=== PATIENT | female | born 1970 | race Caucasian/White ===

== ENCOUNTER 2017-04-08 15:34 | Inpatient (IN) ==
[2017-04-08] MEDS ORDERED: Aspirin 81 MG TAB.CHEW PO ONE (15:49)
--- NOTE | 2017-04-08 15:53 | Emergency Department Note ---
Disposition Clinical Impression: Acute kidney injury Chest pain Qualifiers: Chest pain type: unspecified Qualified Code(s): R07.9 - Chest pain, unspecified Disposition: Admitted As Inpatient Condition: Good Referrals: Unique Houser CNP [Primary Care Provider] - Forms: ED Satisfaction Letter General Adult HPI - General Chief complaint: ED Chest Pain Stated complaint: CP// Left arm numb Time Seen by Provider: 04/08/17 15:44 Source: patient Limitations: no limitations Nursing Notes Reviewed: Yes Vital Signs Reviewed: Yes - History of Present Illness HPI Narrative: 46-year-old female who 1 hour ago was sitting in the waiting room with her and had sudden onset left-sided chest discomfort with radiation to the left shoulder and left arm. She denies any weakness. She had mild dyspnea associated with it. She states she did have some chest pain a couple years ago and had a stress test which was normal. She does not have any known cardiac disease that she is aware of. Her past medical history includes diabetes, hypertension, hypothyroidism. She has had a prior cholecystectomy years ago. She denies diaphoresis. She states the pain is improving a little bit and does not have all the symptoms in her left arm anymore. She denies any modifying factors. She has no syncope. She does not describe it as a tearing sensation and it is not radiating all the way toward her back. Pain Severity: severe Pain Scale: 9 Consistency: constant Improves with: nothing Worsens with: nothing Treatments Prior to Arrival: none - Related Data Home Medications Medication Instructions Recorded Confirmed metFORMIN [Glucophage] 500 mg PO DAILY 12/03/15 04/08/17 Aspirin [Lo-Dose Aspirin EC] 81 mg PO DAILY 02/01/16 04/08/17 Lovastatin [Mevacor] 20 mg PO HS 02/01/16 04/08/17 Calcium Citrate 500 mg PO BID 04/08/17 04/08/17 Cetirizine HCl [Zyrtec] 10 mg PO DAILY 04/08/17 04/08/17 Cyanocobalamin (Vitamin B-12) 2,000 mcg PO DAILY 04/08/17 04/08/17 [Vitamin B-12] Ergocalciferol (VITAMIN D2) 50,000 unit PO QWEEK 04/08/17 04/08/17 [Vitamin D2] Fluticasone Propionate Nasal 50 mcg NS DAILY PRN 04/08/17 04/08/17 [Flonase] Latanoprost [Xalatan] 1 drop OP HS 04/08/17 04/08/17 Levothyroxine [Synthroid] 125 mcg PO 0630 04/08/17 04/08/17 Megestrol Acetate 20 mg PO BID 04/08/17 04/08/17 Metoprolol [Lopressor] 12.5 mg PO BID 04/08/17 04/08/17 Allergies Allergy/AdvReac Type Severity Reaction Status Date / Time Penicillins [PCN] Allergy Rash Verified 07/05/16 22:43 Sulfa (Sulfonamide Allergy Rash Verified 07/05/16 22:43 Antibiotics) All systems ED: reviewed and negative except as stated. Constitutional: Denies: fever ENT ED: Denies: throat pain Cardiovascular: Reports: chest pain. 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 Absent: respiratory distress - Cardiovascular Cardiovascular exam: Present: regular rate, normal rhythm - Abdominal Exam Abdominal exam: Present: soft, Non-Tender. Absent: distention, guarding - Extremities Exam Extremities exam: Present: normal inspection. Absent: pedal edema - Neurological Exam Neurological exam: Present: alert, oriented X3 - Psychiatric Psychiatric exam: Present: normal affect, normal mood - Skin Skin exam: Present: warm, dry Course Course Narrative: I have concern for primary cardiac etiology versus pulmonary etiology versus pulmonary embolism. I will go ahead and get a d-dimer as she is low risk. She is having some dyspnea and she has tachycardia. She is not hypoxic. I do not believe that this is a aortic dissection as she is not in significant distress and the pain is not radiating into her back and she has equal pulses. She also states that the pain is improving and not worsening. We will given aspirin and do a EKG and chest x-ray and lab work with likely admission for ACS rule out Possible mild ST depression in lateral leads. Pain went from a 10 to a 5 after 3 sublingual nitro. Placed her on a nitro drip. Received ASA. Troponin negative. CXR negative. Will admit for CP rule out. Hospitalist requested a cardio consult which I entered for them. Vital Signs Temperature 97.6 F 04/08/17 15:46 Pulse Rate 110 04/08/17 15:46 Respiratory Rate 18 04/08/17 15:46 Blood Pressure 140/105 04/08/17 15:46 O2 Sat by Pulse Oximetry 98 04/08/17 15:46 Temperature 97.6 F 04/08/17 15:46 Pulse Rate 89 04/08/17 18:35 Respiratory Rate 18 04/08/17 18:35 Blood Pressure 116/63 04/08/17 18:35 O2 Sat by Pulse Oximetry 97 04/08/17 18:35 Oxygen Delivery Oxygen Delivery Nasal Cannula Medical Decision Making - Medical Records Medical records reviewed: Yes I reviewed the patient's medical records. - Lab Data Lab results reviewed: Yes I reviewed the patient's lab results. Result diagrams: 04/08/17 15:46 04/08/17 15:46 Lab Results 04/08/17 04/08/17 04/08/17 Range/Units 15:46 15:46 15:46 WBC 11.9 H (4.3-11.1) K/mcL RBC 5.07 H (3.82-4.97) M/mcL Hgb 13.6 (11.5-15.4) g/dL Hct 42.6 (35.3-44.9) % MCV 84.0 (83.0-100.0) fL MCH 26.8 L (28.0-33.3) pg MCHC 31.9 (31.6-35.5) g/dL RDW 14.7 H (11.5-14.5) % Plt Count 435 H (140-400) K/mcL MPV 9.3 L (9.4-12.4) fL Immature Gran % 1.1 (0-4) % Seg Neutrophils % 58.1 % Lymphocytes % 33.8 % Monocytes % 5.2 % Eosinophils % 1.3 % Basophils % 0.5 % Neutrophils # 7.0 (1.6-8.9) K/mcL Lymphocytes # 4.0 (0.6-4.6) K/mcL Monocytes # 0.6 (0.0-1.3) K/mcL Eosinophils # 0.2 (0.0-0.6) K/mcL Basophils # 0.1 (0.0-0.2) K/mcL D-Dimer 314 (0-500) ng/mLFEU Sodium (136-145) mEq/L Potassium (3.5-4.5) mEq/L Chloride (98-109) mEq/L Carbon Dioxide (19-29) mEq/L BUN (7-20) mg/dL Creatinine (0.57-1.11) mg/dL Est GFR ( Amer) (> 60) Est GFR (Non-Af Amer) (> 60) BUN/Creatinine Ratio (6-26) Glucose (70-99) mg/dL Calculated Osmolality (280-300) Calcium (8.6-10.8) mg/dL Total Bilirubin (0.2-1.2) mg/dL Direct Bilirubin (0.0-0.5) mg/dL Indirect Bilirubin (0.0-1.2) mg/dL AST (5-34) Units/L ALT (0-55) Units/L Alkaline Phosphatase (38-126) Units/L Troponin I (0-0.03) ng/mL B-Natriuretic Peptide < 10 (0-100) pg/mL Serum Total Protein (6.0-8.3) g/dL Albumin (3.5-5.0) g/dL Globulin (2.4-3.5) g/dL Albumin/Globulin Ratio (1.1-2.2) Lipase (8-78) Units/L 04/08/17 04/08/17 Range/Units 15:46 15:46 WBC (4.3-11.1) K/mcL RBC (3.82-4.97) M/mcL Hgb (11.5-15.4) g/dL Hct (35.3-44.9) % MCV (83.0-100.0) fL MCH (28.0-33.3) pg MCHC (31.6-35.5) g/dL RDW (11.5-14.5) % Plt Count (140-400) K/mcL MPV (9.4-12.4) fL Immature Gran % (0-4) % Seg Neutrophils % % Lymphocytes % % Monocytes % % Eosinophils % % Basophils % % Neutrophils # (1.6-8.9) K/mcL Lymphocytes # (0.6-4.6) K/mcL Monocytes # (0.0-1.3) K/mcL Eosinophils # (0.0-0.6) K/mcL Basophils # (0.0-0.2) K/mcL D-Dimer (0-500) ng/mLFEU Sodium 141 (136-145) mEq/L Potassium 3.2 L (3.5-4.5) mEq/L Chloride 102 (98-109) mEq/L Carbon Dioxide 28 (19-29) mEq/L BUN 13 (7-20) mg/dL Creatinine 1.18 H (0.57-1.11) mg/dL Est GFR ( Amer) > 60 (> 60) Est GFR (Non-Af Amer) 50 L (> 60) BUN/Creatinine Ratio 11 (6-26) Glucose 115 H (70-99) mg/dL Calculated Osmolality 293 (280-300) Calcium 8.0 L (8.6-10.8) mg/dL Total Bilirubin 1.0 (0.2-1.2) mg/dL Direct Bilirubin 0.3 (0.0-0.5) mg/dL Indirect Bilirubin 0.7 (0.0-1.2) mg/dL AST 42 H (5-34) Units/L ALT 30 (0-55) Units/L Alkaline Phosphatase 88 (38-126) Units/L Troponin I 0.00 (0-0.03) ng/mL B-Natriuretic Peptide (0-100) pg/mL Serum Total Protein 7.9 (6.0-8.3) g/dL Albumin 3.5 (3.5-5.0) g/dL Globulin 4.4 H (2.4-3.5) g/dL Albumin/Globulin Ratio 0.8 L (1.1-2.2) Lipase 38 (8-78) Units/L - Radiology Data Radiology results reviewed: Yes I reviewed the patient's radiology results. - EKG Data EKG #1 EKG attestation: Yes I reviewed and interpreted this EKG. EKG shows normal: sinus rhythm Rate: tachycardia Rhythm: NSR [place]/QRS: normal Interpretation: nonspecific ST-T wave changes Attestation Statement - Attestation Attestation: I examined this patient and my medical decision-making was reviewed with the Resident Physician. I agree with the documented findings, disposition and treatment plan as described except to the extent set forth below. Chest pain, could be cardiac in etiology, proceed with admission for further evaluation and rule out acute coronary syndrome. Nitroglycerin given for pain. This did improve her pain and ultimately an infusion was initiated. Greater than 35 minutes of critical care time was spent resuscitating this acutely ill patient suffering from chest pain requiring nitroglycerin infusion for ongoing pain. This is excluding billable procedures.
[2017-04-08 16:00] LABS: Basophils # 0.1 K/mcL (0.0-0.2); Basophils % 0.5 %; Eosinophils # 0.2 K/mcL (0.0-0.6); Eosinophils % 1.3 %; Hematocrit 42.6 % (35.3-44.9); Hemoglobin 13.6 g/dL (11.5-15.4); Immature Granulocytes % 1.1 % (0-4); Lymphocytes % 33.8 %; Mean Corpuscular HGB Conc 31.9 g/dL (31.6-35.5); Mean Corpuscular Hemoglobin 26.8 pg (28.0-33.3); Mean Platelet Volume 9.3 fL (9.4-12.4); Monocytes # 0.6 K/mcL (0.0-1.3); Monocytes % 5.2 %; Platelet Count 435 K/mcL (140-400); Red Blood Count 5.07 M/mcL (3.82-4.97); Red Cell Distribution Width 14.7 % (11.5-14.5); Segmented Neutrophils % 58.1 %
[2017-04-08] MEDS: Nitroglycerin 0.4 MG TAB.SUBL SL ONE ×2 (16:11→17:00)
[2017-04-08 16:15] LABS: Alanine Aminotransferase 30 Units/L (0-55); Albumin 3.5 g/dL (3.5-5.0); Albumin/Globulin Ratio 0.8 (1.1-2.2); Alkaline Phosphatase 88 Units/L (38-126); Aspartate Amino Transferase 42 Units/L (5-34); BUN/Creatinine Ratio 11 (6-26); Bilirubin,Direct 0.3 mg/dL (0.0-0.5); Bilirubin,Indirect 0.7 mg/dL (0.0-1.2); Blood Urea Nitrogen 13 mg/dL (7-20); Carbon Dioxide 28 mEq/L (19-29); Chloride 102 mEq/L (98-109); Globulin 4.4 g/dL (2.4-3.5); Glucose 115 mg/dL (70-99); Lipase 38 Units/L (8-78); Osmolality,Calculated 293 (280-300); Potassium 3.2 mEq/L (3.5-4.5); Sodium 141 mEq/L (136-145); Total Protein 7.9 g/dL (6.0-8.3); eGFR For African Americans > 60 (> 60); eGFR For Non-African Americans 50 (> 60)
[2017-04-08] MEDS ORDERED: Nitroglycerin 25 MG/250 ML INFUS..BTL IVC SCH (17:00)
[2017-04-08] MEDS ORDERED: FentaNYL (PF) 1,000 MCG in 0.9 % Sodium Chloride 80 ML IVC SCH (18:00)
[2017-04-08] MEDS: Acetaminophen 325 MG TABLET PO ONE (18:55)
--- NOTE | 2017-04-08 18:56 | Internal Med History&Physical ---
Date of Encounter: 04/08/17 Time of Encounter: 18:54 Assessment and Plan (1) Unstable angina Current visit: Yes Status: Acute Typical chest pain based on the substernal location, pressure-like and relieved with nitroglycerin. Acute pulmonary embolus enters the differential however the d-dimer was negative which rules out PE. Patient continues to have angina at rest which qualifies as unstable angina and therefore ACS. We will treat her with IV nitroglycerin drip, start IV heparin drip per ACS protocol. Start IV metoprolol. Continue with aspirin. Consult cardiology. Obtain echocardiogram. Nothing by mouth after midnight for possible stress test versus catheter. Trend troponin. Keep the patient on telemetry. She is at high risk for morbidity, mortality and complications due to IV nitroglycerin and IV heparin which requires close blood level monitoring for coagulation parameters. (2) Hyperlipidemia Current visit: Yes Status: Acute Check lipid panel and TSH. Qualifiers: Hyperlipidemia type: unspecified Qualified Code(s): E78.5 - Hyperlipidemia , unspecified (3) Hypertension Current visit: Yes Status: Acute Continue with metoprolol. We will switch to IV form. Qualifiers: Hypertension type: essential hypertension Qualified Code(s): I10 - Essential (primary) hypertension (4) Type 2 diabetes mellitus Current visit: Yes Status: Acute Hold metformin. Start insulin sliding scale. Check hemoglobin A1c. Qualifiers: Diabetes mellitus complication status: without complication Diabetes mellitus correction insulin use: without correction use Qualified Code(s): E11.9 - Type 2 diabetes mellitus without complications (5) Hypokalemia Current visit: Yes Status: Acute Replete with IV potassium. (6) DVT prophylaxis Current visit: Yes Status: Acute We will be on heparin drip. Internal Medicine - H&P: HPI Chief complaint: Chest pain Admitted From: Emergency Dept Plans for Post Hospital Care: Home History of present illness: Ms. Ambrose is a 46 year old female with past medical history of hypothyroidism, hypertension, type 2 diabetes and hypercholesterolemia who presented to the hospital for chest pain. She reports that chest pain started abruptly around 3 PM while at rest, was located in the mellitus her chest, 10/10 in intensity squeezing and pressure-like, radiating to the left shoulder and left arm. She reports associated nausea and vomiting. She was brought to the hospital where she was given nitroglycerin which helped alleviate the pain. She reports that currently her pain as 4/10 in intensity while treated with nitro drip. A 14 point review of systems was negative except as above. Specifically negative for bleeding, bruising, history of blood clots. Past medical history as above Past surgical history: Thyroidectomy, tubal ligation and cholecystectomy Social history: Denies tobacco alcohol and drug use. Works as a SUPERVISOR MAINTENANCE Family history: Patient's mother suffered with CAD and had a CABG done in her 30s. Patient's father suffered with RI. Patient's sister suffers with CAD in her 40s. Patient's mother suffered with breast cancer in patient's grandmother suffered with ovarian cancer. Past Med Surg Social Fam HX - Past Medical History Medical history: diabetes, GERD, hyperlipidemia, hypertension Psychiatric history: no psych history - Past Surgical History Surgical History: , cholecystectomy, other (Bilateral tubal ligation) - Social History Smoking Status: Never smoker Smokeless Tobacco Status: No Alcohol use: none Drug use: none - Family History Father Hx Family Cardiac Disorders: Yes (RI) Mother Hx Family Cardiac Disorders: Yes (cabg at 35) Internal Medicine - H&P: Meds metFORMIN [Glucophage] 500 mg PO DAILY 12/03/15 [History] Aspirin [Lo-Dose Aspirin EC] 81 mg PO DAILY 02/01/16 [History] Lovastatin [Mevacor] 20 mg PO HS 02/01/16 [History] Calcium Citrate 500 mg PO BID 04/08/17 [History] Cetirizine HCl [Zyrtec] 10 mg PO DAILY 04/08/17 [History] Cyanocobalamin (Vitamin B-12) [Vitamin B-12] 2,000 mcg PO DAILY 04/08/17 [ History] Ergocalciferol (VITAMIN D2) [Vitamin D2] 50,000 unit PO QWEEK 04/08/17 [History] Fluticasone Propionate Nasal [Flonase] 50 mcg NS DAILY PRN 04/08/17 [History] Latanoprost [Xalatan] 1 drop OP HS 04/08/17 [History] Levothyroxine [Synthroid] 125 mcg PO 0630 04/08/17 [History] Megestrol Acetate 20 mg PO BID 04/08/17 [History] Metoprolol [Lopressor] 12.5 mg PO BID 04/08/17 [History] 3 Allergy/AdvReac Type Severity Reaction Status Date / Time Penicillins [PCN] Allergy Rash Verified 07/05/16 22:43 Sulfa (Sulfonamide Allergy Rash Verified 07/05/16 22:43 Antibiotics) All Systems PM: A 10-system review of systems was performed and is negative for pertinent findings except as documented above in the HPI. - Constitutional Vitals: Temp Pulse Resp BP Pulse Ox 97.6 F 89 18 116/63 97 04/08/17 15:46 04/08/17 18:35 04/08/17 18:35 04/08/17 18:35 04/08/17 18:35 General appearance: Present: A&O X 3 - Eye Eye exam: Present: PERRL, conjuntiva pink, sclera anicteric Pupils: Present: PERRL - Respiratory Respiratory exam: Present: CTAB. Absent: accessory muscle use, rales, rhonchi, wheezes - Cardiovascular Cardiovascular exam: Present: +S1, +S2, tachycardia. Absent: diastolic murmur, gallop, rubs, systolic murmur - GI/Abdominal GI/Abdominal exam: Present: normal bowel sounds, soft, no peritoneal signs. Absent: distended, tenderness - Extremities Exam Extremities exam: Present: warm, radial pulses palpable and symmetrical. Absent : calf tenderness, cyanotic, pedal edema - Neurological Exam Neurological exam: Present: CN II-XII intact, oriented X3, no focal deficits. Absent: pronater drift, facial droop, speech deficit - Skin Skin exam: Present: dry, intact Internal Med - H&P Results - Labs CBC & Chem 7: 04/08/17 15:46 04/08/17 15:46 - EKG Data -: EKG Interpreted by Myself EKG shows normal: axis, intervals, QRS complexes, ST-T waves Rate: tachycardia - EKG Data Prior EKG available for review: yes When compared to previous EKG: there is no significant change
[2017-04-08] MEDS ORDERED: *HR* HYDROcodone/Acet 5/325 mg TABLET PO PRN (19:04)
[2017-04-08] MEDS ORDERED: Naloxone 0.4 MG/ML INJ IVP PRN (19:04)
[2017-04-08] MEDS ORDERED: Ondansetron 4 MG/2 ML VIAL IVP PRN (19:04)
[2017-04-08] MEDS ORDERED: Acetaminophen 325 MG TABLET PO PRN (19:04)
[2017-04-08] MEDS ORDERED: *HR* Morphine 2 MG/ML SYRINGE IVP PRN (19:04)
[2017-04-08] MEDS ORDERED: *HR* Heparin 5,000 UNIT/ML VIAL IVP ONE (19:07)
[2017-04-08] MEDS ORDERED: *HR* Heparin 5,000 UNIT/ML VIAL IVP PRN ×2 (19:07)
[2017-04-08] MEDS ORDERED: *HR* Dextrose 50 % in Water (Syg) 50 ML SYRINGE IVP PRN (19:10)
[2017-04-08] MEDS ORDERED: Dextrose Gel 15 GM PO PRN ×2 (19:10)
[2017-04-08] MEDS ORDERED: D5% in Water 1,000 ML IVC PRN (19:10)
[2017-04-08] MEDS ORDERED: Heparin 25,000 UNIT/500 ML D5W 25,000 UNIT/500 ML MLS IVC SCH (19:15)
[2017-04-08 19:35] LABS: Hemoglobin 12.6 g/dL (11.5-15.4); Immature Platelets 1.4 % (1.1-6.1); Mean Corpuscular HGB Conc 31.5 g/dL (31.6-35.5); Mean Corpuscular Hemoglobin 26.6 pg (28.0-33.3); Mean Corpuscular Volume 84.4 fL (83.0-100.0); Mean Platelet Volume 9.4 fL (9.4-12.4); Red Blood Count 4.74 M/mcL (3.82-4.97); Red Cell Distribution Width 14.6 % (11.5-14.5)
[2017-04-08 19:44] LABS: INR 1.1; Prothrombin Time 11.4 Seconds (9.4-12.1)
[2017-04-08 19:46] LABS: Activated Partial Thrombo Time 29.6 Seconds (26.0-36.0)
[2017-04-08] MEDS: Insulin LISPRO 300 UNITS/3 ML VIAL SQ SCH ×2 (19:53→21:36)
[2017-04-08] MEDS ORDERED: Latanoprost 2.5 ML BOTTLE BOTH EYES SCH (21:00)
[2017-04-09 04:45] LABS: Basophils # 0.1 K/mcL (0.0-0.2); Basophils % 0.5 %; Eosinophils # 0.2 K/mcL (0.0-0.6); Eosinophils % 1.8 %; Hemoglobin 11.3 g/dL (11.5-15.4); Immature Granulocytes % 0.6 % (0-4); Lymphocytes # 4.6 K/mcL (0.6-4.6); Lymphocytes % 42.4 %; Mean Corpuscular HGB Conc 32.3 g/dL (31.6-35.5); Mean Corpuscular Hemoglobin 27.6 pg (28.0-33.3); Mean Corpuscular Volume 85.4 fL (83.0-100.0); Mean Platelet Volume 9.8 fL (9.4-12.4); Monocytes # 0.6 K/mcL (0.0-1.3); Monocytes % 5.4 %; Neutrophils # 5.4 K/mcL (1.6-8.9); Platelet Count 309 K/mcL (140-400); Red Cell Distribution Width 14.6 % (11.5-14.5); Segmented Neutrophils % 49.3 %
[2017-04-09 04:48] LABS: BUN/Creatinine Ratio 19 (6-26); Blood Urea Nitrogen 15 mg/dL (7-20); Calcium 7.2 mg/dL (8.6-10.8); Carbon Dioxide 25 mEq/L (19-29); Chloride 107 mEq/L (98-109); Cholesterol 181 mg/dL (< 200); Glucose 113 mg/dL (70-99); HDL Cholesterol 30 mg/dL (40-59); LDL Cholesterol,Calculated 105 mg/dL (0-99); Magnesium 2.1 mg/dL (1.6-2.6); Osmolality,Calculated 292 (280-300); Potassium 3.5 mEq/L (3.5-4.5); Sodium 140 mEq/L (136-145); Triglycerides 231 mg/dL (< 150); eGFR For African Americans > 60 (> 60); eGFR For Non-African Americans > 60 (> 60)
[2017-04-09 05:10] LABS: Thyroid Stimulating Hormone 82.736 mcIU/mL (0.350-4.840)
[2017-04-09] MEDS: Insulin LISPRO 300 UNITS/3 ML VIAL SQ SCH ×6 (08:06→16:05)
[2017-04-09] MEDS ORDERED: Loratadine 10 MG TABLET PO SCH (09:00)
[2017-04-09] MEDS ORDERED: Aspirin Enteric Coated 81 MG Tablet PO SCH (09:00)
[2017-04-09] MEDS: Acetaminophen 325 MG TABLET PO ONE (09:14)
--- NOTE | 2017-04-09 10:15 | Cardiology Consult Note ---
Date of Encounter: 04/09/17 Time of Encounter: 10:12 Assessment and Plan (1) Unstable angina Current Visit: Yes Status: Acute Chest pain yesterday at rest--midsternal tightness that radiated to left arm associated with nausea, vomiting and diaphoresis, relieved with Nitro. Symptoms concerning for unstable angina. No ischemic EKG changes. Troponins negative x 3. Currently on nitro gtt at 5mcg/hr and heparin gtt. Chest pain free. Negative stress test 01/2016. Echo EF preserved. Risk factors for CAD include family hx (father AL 40, mother CABG age 35), HTN, HLD, DM, obesity. Recommend [facility]. R/B/A discussed. Pt agrees to proceed. [facility] today. TSH 82.736--management per primary team. Discussion w patient/family: The assessment and plan as outlined above was discussed with the patient and/or family members who expressed understanding and agreement. All questions were answered. Thank you for involving us in the care of your patient. Please call with any questions. I will discuss all the above with Dr. Chang Rodriguez and make changes as necessary. History of Present Illness Consult date: 04/09/17 Requesting physician: Kerwin Martinez Consult reason: unstable angina Chief complaint: chest pain History of present illness: Ms. Amrbose is a 46 year old female with past medical history of hypothyroidism, hypertension, type 2 diabetes and hypercholesterolemia who presented to ED for chest pain. She reports that chest pain started abruptly around 3 PM while at rest, was located in the middle of her chest, described as tightness, radiating to the left shoulder and left arm. She reports associated diaphoresis, nausea and vomiting. She was brought to the hospital where she was given nitroglycerin which helped alleviate the pain. She is currently on a nitro gtt and pain free. She had a negative stress test 01/2016. Troponins negative x 3. Reports strong family hx, mother had bypass age 35, father had AL age 40. TSH 82.736. Echo resulted--EF 60-65%, no significant findings. Past Med Surg Social Fam HX - Past Medical History Medical history: diabetes, GERD, hyperlipidemia, hypertension Psychiatric history: no psych history - Past Surgical History Surgical History: , cholecystectomy, other - Social History Smoking Status: Never smoker Smokeless Tobacco Status: No Alcohol use: none Drug use: none - Family History Father Hx Family Cardiac Disorders: Yes (AL) Mother Hx Family Cardiac Disorders: Yes (cabg at 35) Medications and Allergies metFORMIN [Glucophage] 500 mg PO DAILY 12/03/15 [History] Aspirin [Lo-Dose Aspirin EC] 81 mg PO DAILY 02/01/16 [History] Lovastatin [Mevacor] 20 mg PO HS 02/01/16 [History] Calcium Citrate 500 mg PO BID 04/08/17 [History] Cetirizine HCl [Zyrtec] 10 mg PO DAILY 04/08/17 [History] Cyanocobalamin (Vitamin B-12) [Vitamin B-12] 2,000 mcg PO DAILY 04/08/17 [ History] Ergocalciferol (VITAMIN D2) [Vitamin D2] 50,000 unit PO QWEEK 04/08/17 [History] Fluticasone Propionate Nasal [Flonase] 50 mcg NS DAILY PRN 04/08/17 [History] Latanoprost [Xalatan] 1 drop OP HS 04/08/17 [History] Levothyroxine [Synthroid] 125 mcg PO 0630 04/08/17 [History] Megestrol Acetate 20 mg PO BID 04/08/17 [History] Metoprolol [Lopressor] 12.5 mg PO BID 04/08/17 [History] 3 Allergy/AdvReac Type Severity Reaction Status Date / Time Penicillins [PCN] Allergy Rash Verified 07/05/16 22:43 Sulfa (Sulfonamide Allergy Rash Verified 07/05/16 22:43 Antibiotics) All Systems Review: A 10-system review of systems was performed and is negative for pertinent findings except as documented above in the HPI. - Cardiovascular Cardiovascular: as per HPI, chest pain at rest, chest pain with exertion, diaphoresis, radiating jaw, neck or arm pain Physical Examination Vital Signs, Last 4 Hours Temp Pulse Resp BP Pulse Ox 04/09/17 08:52 95 04/09/17 06:32 97.7 F 75 14 98/65 95 Vital Signs Temp Pulse Resp BP Pulse Ox 04/09/17 08:52 95 04/09/17 06:32 97.7 F 75 14 98/65 95 04/09/17 04:32 97.7 F 73 20 92/58 96 04/08/17 23:45 106/63 04/08/17 21:39 101 95/51 04/08/17 19:27 98.3 F 88 19 128/84 95 04/08/17 18:55 18 106/70 04/08/17 18:35 89 18 116/63 97 04/08/17 18:15 83 18 111/65 98 04/08/17 18:10 92 18 109/65 97 04/08/17 17:59 87 18 132/102 97 04/08/17 17:41 84 18 127/68 98 04/08/17 17:00 102 18 103/69 96 04/08/17 16:29 93 18 116/92 96 04/08/17 15:55 108 16 140/105 98 04/08/17 15:46 97.6 F 110 18 140/105 98 Intake and Output 04/08/17 04/09/17 04/09/17 23:59 07:59 15:59 Intake Total 151 / 151 1000 / 1000 Balance 151 / 151 1000 / 1000 Intake: IV Fluids 151 / 151 1000 / 1000 Heparin 25,000 UNIT/500 151 / 151 ML D5W 25,000 unit In 500 ml @ 10.5 UNIT/KG/HR 19. 527 mls/hr IVC .Q24H SHRAVAN Rx#:[id number] Nitroglycerin Premix 25 / MG/250 ML 25 mg In 250 ml @ 5 MCG/MIN 3 mls/hr IVC .Q24H SHRAVAN Rx#:[id number] KCl 30 MEQ In 0.9 % 1000 / 1000 Sodium Chloride 1,000 ML @ 100 mls/hr IVC .Q10H9M SHRAVAN Rx#:[id number] Oral 0 / 0 Other: Weight 98.4 kg Blood Glucose* 104 99 General: Conversant, No Apparent Distress HEENT: Atraumatic, Normocephaly, Mucus Membranes Moist Neck: No JVD, Normal carotid pulses Cardiac: Reg Rate and Rhythm, Normal S1 and S2, No Murmur Lungs: Normal Breath Sounds, No Wheeze, Rales, Rhonchi Neuro: Alert and responsive, No focal deficits noted Abdomen: Soft, Non-Tender Skin: No rashes noted on visualized skin Musculoskeletal: No Chest Wall Tenderness Extremities: No Clubbing, No Cyanosis, No Edema, Normal Pulses Results 04/09/17 04:09 04/09/17 04:09 Lab Results 04/08/17 04/08/17 04/08/17 19:23 19:23 19:23 WBC 11.6 H Hgb 12.6 Hct 40.0 Plt Count 395 INR 1.1 APTT 29.6 Sodium Potassium Chloride Carbon Dioxide BUN Creatinine Glucose Calcium Magnesium Troponin I 0.00 TSH 04/09/17 04/09/17 04/09/17 01:18 04:09 04:09 WBC 10.9 Hgb 11.3 L Hct 35.0 L Plt Count 309 INR APTT Sodium 140 Potassium 3.5 Chloride 107 Carbon Dioxide 25 BUN 15 Creatinine 0.80 Glucose 113 H Calcium 7.2 L Magnesium 2.1 Troponin I 0.00 TSH 82.736 H 04/09/17 04:09 WBC Hgb Hct Plt Count INR APTT 45.7 H D Sodium Potassium Chloride Carbon Dioxide BUN Creatinine Glucose Calcium Magnesium Troponin I TSH Short CBC 04/09/17 04/08/17 04/08/17 Range/Units 04:09 19:23 15:46 WBC 10.9 11.6 H 11.9 H (4.3-11.1) K/mcL Hgb 11.3 L 12.6 13.6 (11.5-15.4) g/dL Hct 35.0 L 40.0 42.6 (35.3-44.9) % Plt Count 309 395 435 H (140-400) K/mcL Neutrophils # 5.4 7.0 (1.6-8.9) K/mcL BMP 04/09/17 04/08/17 Range/Units 04:09 15:46 Sodium 140 141 (136-145) mEq/L Potassium 3.5 3.2 L (3.5-4.5) mEq/L Chloride 107 102 (98-109) mEq/L Carbon Dioxide 25 28 (19-29) mEq/L BUN 15 13 (7-20) mg/dL Creatinine 0.80 1.18 H (0.57-1.11) mg/dL Glucose 113 H 115 H (70-99) mg/dL Calcium 7.2 L 8.0 L (8.6-10.8) mg/dL Cardiac Enzymes 04/09/17 04/08/17 04/08/17 Range/Units 01:18 19:23 15:46 Troponin I 0.00 0.00 0.00 (0-0.03) ng/mL Liver Function 04/08/17 Range/Units 15:46 Total Bilirubin 1.0 (0.2-1.2) mg/dL Direct Bilirubin 0.3 (0.0-0.5) mg/dL AST 42 H (5-34) Units/L ALT 30 (0-55) Units/L Alkaline Phosphatase 88 (38-126) Units/L Albumin 3.5 (3.5-5.0) g/dL Impressions Chest X-Ray 04/08/17 15:50 IMPRESSION: No acute abnormality. D/ / Baljinder Isaac / Baljinder Isaac Interpreting Provider: Baljinder Isaac Active Medications Acetaminophen (Tylenol) 650 mg PO Q6HR PRN PRN Reason: Mild Pain (1-3) Stop: 10/08/17 19:05 Hydrocodone Bitart/Acetaminophen ([place] 5-325 Mg) 1 tab PO Q4HR PRN PRN Reason: Moderate Pain (4-6) Stop: 10/08/17 19:05 Aspirin (Aspirin Ec) 81 mg PO DAILY SHRAVAN Stop: 10/09/17 09:01 Dextrose/Water (Dextrose 50% (Syg)) 25 ml IVP AD PRN PRN Reason: Hypoglycemia Stop: 10/08/17 19:11 Glucagon (Glucagen) 1 mg IM ONCE PRN PRN Reason: Hypoglycemia Stop: 10/08/17 19:11 Glucose (Gluctose) 15 gm PO ONCE PRN PRN Reason: Hypoglycemia Stop: 10/08/17 19:11 Glucose (Gluctose) 30 gm PO ONCE PRN PRN Reason: Hypoglycemia Stop: 10/08/17 19:11 Heparin Sodium (Porcine) (Heparin) 4,000 unit IVP Q6HR PRN PRN Reason: SEE COMMENTS Stop: 10/08/17 19:08 Heparin Sodium (Porcine) (Heparin) 2,000 unit IVP Q6H PRN PRN Reason: SEE COMMENTS Stop: 10/08/17 19:08 Last Admin: 04/09/17 05:10 Dose: 2,000 unit Nitroglycerin (Nitroglycerin Premix 25 Mg/250 Ml) 25 mg in 250 mls @ 3 mls/hr IVC .Q24H SHRAVAN; 5 MCG/MIN PRN Reason: Protocol Stop: 10/08/17 17:01 Last Titration: 04/08/17 21:42 Dose: 5 mcg/min, 3 mls/hr Heparin Sodium/Dextrose (Heparin 25,000 Unit/500 Ml D5w) 25,000 unit in 500 mls @ 19.527 mls/hr IVC .Q24H SHRAVAN; 10.5 UNIT/KG/HR PRN Reason: Protocol Stop: 10/08/17 19:16 Last Titration: 04/09/17 05:06 Dose: 12.63 unit/kg/hr, 23.5 mls/hr Dextrose (Dextrose 5%) 1,000 mls @ 100 mls/hr IVC .Q10H PRN PRN Reason: HYPOGLYCEMIA Stop: 10/08/17 19:11 Insulin Human Lispro (Humalog) 2 units SQ TIDWM SHRAVAN Stop: 10/08/17 19:16 Last Admin: 04/09/17 08:06 Dose: Not Given Insulin Human Lispro (Humalog) 0 units SQ ACHS SHRAVAN PRN Reason: Protocol Stop: 10/08/17 21:01 Last Admin: 04/09/17 08:06 Dose: Not Given Latanoprost (Xalatan) 1 drop BOTH EYES HS SHRAVAN PRN Reason: Protocol Stop: 10/08/17 21:01 Last Admin: 04/08/17 21:43 Dose: 1 drop Levothyroxine Sodium (Synthroid) 125 mcg PO 0630 [facility] Stop: 10/09/17 06:31 Last Admin: 04/09/17 05:10 Dose: Not Given Loratadine (Claritin) 10 mg PO DAILY [facility] Stop: 10/09/17 09:01 Lovastatin (Mevacor) 20 mg PO HS [facility] Stop: 10/08/17 21:01 Last Admin: 04/08/17 21:43 Dose: 20 mg Metoprolol Tartrate (Lopressor) 6.25 mg PO BID [facility] Stop: 10/08/17 21:01 Last Admin: 04/08/17 21:37 Dose: Not Given Morphine Sulfate (Morphine Sulfate) 2 mg IVP Q4HR PRN PRN Reason: Severe Pain (7-10) Stop: 10/08/17 19:05 Naloxone HCl (Narcan) 0.4 mg IVP Q2MIN PRN PRN Reason: Opioid Reversal Stop: 10/08/17 19:05 Ondansetron HCl (Zofran) 4 mg IVP Q8HR PRN PRN Reason: Nausea And Vomiting Stop: 10/08/17 19:05 - Imaging and Cardiology Stress Test: report reviewed Echo: report reviewed - EKG Interpretation EKG results cardiology: personally reviewed (sinus tach) Consult Discharge Plan - Plan Referrals: Unique Houser [facility] [Primary Care Provider] -
--- NOTE | 2017-04-09 11:35 | Pre-Sedation Evaluation ---
Pre-sedation evaluation - Pre-sedation checklist Date of procedure: 04/09/17 Procedure: [facility] Recent Vitals: Last Vital Signs Temp 98.0 F 04/09/17 10:29 Pulse 89 04/09/17 10:29 Resp 14 04/09/17 10:29 BP 119/65 04/09/17 10:29 Pulse Ox 97 04/09/17 10:29 H&P (including ROS) documented in medical record: Yes Previous reaction to sedatives/anesthetics: Yes; explain in comment Dietary Status: NPO after Midnight ASA Classification *see protocol: CLASS II-Mild systemic disease Plan of Care: Pt appropriate candidate for procedure/moderate/conscious sedation , Risks/benefits of procedure/sedation discussed w/ patient/family
[2017-04-09] MEDS ORDERED: *HR* Heparin 10,000 UNIT/10 ML VIAL ONE (12:42)
[2017-04-09] MEDS ORDERED: Heparin 1,000 UNITS/500 mL NS 500 ML ONE (12:42)
[2017-04-09] MEDS ORDERED: 0.9 % Sodium Chloride 1,000 ML ONE ×2 (12:42→13:12)
[2017-04-09] MEDS ORDERED: Nitroglycerin 1,000 MCG/10 ML VIAL IV ONE (12:42)
[2017-04-09] MEDS ORDERED: *HR* FentaNYL (PF) 100 MCG/2 ML VIAL ONE (13:12)
[2017-04-09] MEDS ORDERED: *HR* Midazolam HCl 2 MG/2 ML VIAL ONE ×2 (13:12→13:33)
--- NOTE | 2017-04-09 14:02 | Invasive Diagnostic Lab Proc ---
Name: Sarah Ambrose Date of Study: 04/09/2017 Date: 1970 Ht: 60.0in Medical Record#: [id number] Age: 46 Wt: 216.05lb Gender: Female BSA: 1.93 Order #: [id number] BMI: 42.19 Physicians Procedure Physician: Seng Betancur MD, [facility] Referring MD: Referring MD: Staff Name Position Time In Rain Acosta RT (R) Monitor 01:20 PM Corby Velozi RT Scrub 01:20 PM Shawna Goodwin RN Pile Driver Operator Barge Mounted 01:21 PM Tracy Camargo RN Pile Driver Operator Barge Mounted 01:21 PM Indications Indication Unstable Angina Procedures Performed Procedure L HRT ARTERY/VENTRICLE ANGIO Pre-Procedure Checklist Informed consent is complete signed and on chart. H&P is on chart. ID band is on and ID verified with patient. Patient NPO for procedure The procedure was described for the patient and questions were answered. Blood Pressure: 156/77 ECG is on chart. Rhythm: Sinus Tachycardia Plan of Care Patient will tolerate the procedure without complications. Adequate level of comfort will be maintained. Hemodynamics will remain stable Patient will recover from procedure without complications. Respiratory function will be maintained. Cardiac rhythm will remain stable. Patient temperature will be maintained. Patient and/or family have verbalized understanding of the procedure. Patient Education Chief Complaint/Reason for Test: Cardiac Cath Developmental Category: Adult (18-64 years) Developmentally Appropriate for Age: Yes Learning Barriers: None Education Needs: Procedure Education Method: Verbal Information Taught: Cardiac Cath Educational Evaluation: Able to repeat information Intravenous Access Time IV Size Location DC'd Fluid/Drip Rate Units RN 01:08 PM 18g 1 07/31" Patent On Arrival Rt Antecubital 0.9NaCl 25 ml/hr Allergies Sulfa (Sulfonamide Antibiotics) PCN Vital Signs Time BP (mmHg) HR (bpm) O2 Sat. RR (bpm) LOC 01:21 PM / % 5 = Fully awake and oriented or at pre-proc level 01:21 PM / % 4 = Oriented but drowsy 01:36 PM / % 4 = Oriented but drowsy 01:16 PM 156 / 77 100 99 % 13 01:21 PM 154 / 90 100 99 % 15 01:26 PM 142 / 87 90 96 % 16 01:31 PM 143 / 87 100 96 % 17 01:36 PM 139 / 80 100 98 % 19 01:41 PM 142 / 78 99 98 % 19 01:46 PM 132 / 93 100 97 % 14 01:51 PM 140 / 93 94 96 % 30 Procedural Medications Time Medication Dose Units Method Given By 01:21 PM Oxygen 2 L/min nasal cannula Shawna Goodwin RN 01:21 PM Versed 2 mg Intravenous Tracy Camargo RN 01:22 PM Fentanyl 50 mcg Intravenous Tracy Camargo RN 01:33 PM Versed 1 mg Intravenous JazminmmTracy hammer RN 01:34 PM Fentanyl 25 mcg Intravenous Tracy Camargo RN 01:34 PM Lidocaine 2% 20 ml Subcutaneous Seng Betancur MD, [facility] ASA Classification: CLASS II- Mild systemic disease (i.e. well-controlled diabetes, hypertension, asthma, cigarette smoking) Snow Score Preprocedure Postprocedure Activity 2- Moves 4 extremities sustained head lift Activity 2- Moves 4 extremities sustained head lift Circulation 2- SBP +/= 20 points of pre-anesthetic level Circulation 2- SBP +/= 20 points of pre-anesthetic level Consciousness 2- Awake and alert oriented x 3 Consciousness 2- Awake and alert oriented x 3 O2 Saturation 2- Able to maintain O2 satruation of 92% on room air O2 Saturation 2- Able to maintain O2 satruation of 92% on room air Respiratory 2- Able to deep breathe and cough well Respiratory 2- Able to deep breathe and cough well Total Score 10 Total Score 10 Contrast Agent: Isovue Diagnostic Contrast: 52 ml Total Contrast: 52 ml Fluoro Dose: 169 mGy Procedure Log Time Note Enter By 01:08 PM CathStat 01:14 PM Vitals capture started with the following parameters, Patient=Adult, Interval=5 min, Initial Awjjrutz=639 mmHg, Deflation Rate=5 mmHg, Cuff placed on Right Arm 01:15 PM Vitals capture stopped. 01:15 PM Vitals capture started with the following parameters, Patient=Adult, Interval=5 min, Initial Lezkhnkc=238 mmHg, Deflation Rate=5 mmHg, Cuff placed on Right Arm 01:16 PM NC=952 bpm, JGVH=681/77 mmhg, SpO2=99.0 %, Resp=13 B/min 01:20 PM Pt arrived to engineering lab technician 2 at 13:20 twilson :20 PM Physician arrived 13:20 twilson :20 PM Meet and greet completed twilson :20 PM Sign in performed according to hospital policy. twilson : PM Procedure start 13:20 twilson : PM Patient charges- Angio tray pack, Navilyst 3mm J, Pulse Oximetry and ACIST tubing and transducer twilson : PM Hair removed from procedure site in procedure lab using clippers. Bilateral groin prepped with Chloraprep by Rain Acosta (R), safety strap applied then patient was draped. Skin intact. twilson : PM Hair removed from procedure site in procedure lab using clippers. Bilateral groin prepped with Chloraprep by Shawna Goodwin RN, safety strap applied then patient was draped. Skin intact. twilson : PM Rain Acosta RT (R) Position: Monitor Time in: :ilson : PM Kaci Veloz RT Position: Scrub Time in: : twilson PM Shawna Goodwin RN Position: Pile Driver Operator Barge Mounted Time in: : twilson PM Tracy Camargo RN Position: Pile Driver Operator Barge Mounted Time in: : twilson : PM Case Delayed no ilson PM CM=974 bpm, SFDO=348/90 mmhg, SpO2=99.0 %, Resp=15 B/min : PM ASA Class CLASS II- Mild systemic disease (i.e. well-controlled diabetes, hypertension, asthma, cigarette smoking) tw PM Time: 13:21 Patient comfortable and pain free: Yes PM Time: 13:21LOC: 5 = Fully awake and oriented or at pre-proc level PM Time: 13:21 Oxygen on at 2 L/min per nasal cannula by Shawna Goodwin RN ilson PM Time: 13:21 Versed 2 mg Intravenous Given by Tracy Camargo RN ilson PM Time: 13:22 Fentanyl 50 mcg Intravenous Given by Tracy Camargo RN twilson : PM ETCO2 monitor in use and placed on patient. twilson : PM Pressure channel 3 zeroed. 01: PM HR=90 bpm, OOZJ=367/87 mmhg, SpO2=96.0 %, Resp=16 B/min : PM SO=068 bpm, GTYU=308/87 mmhg, SpO2=96.0 %, Resp=17 B/min 01:32 PM Time out performed according to hospital policy twilson :34 PM Time: 13:33 Versed 1 mg Intravenous Given by Tracy Camargo RN twilson :34 PM Time: 13:34 Fentanyl 25 mcg Intravenous Given by Tracy Camargo RN twilson :35 PM Time: 13:34 20 ml Lidocaine 2% to right groin Subcutaneous Given by Seng Betancur MD, [facility] twilson :35 PM Access obtained by percutaneous puncture. 5Fr 10cm Terumo [place] sheath placed in right Femoral artery. [id number] twilson :36 PM ZQ=474 bpm, QYNQ=675/80 mmhg, SpO2=98.0 %, Resp=19 B/min 01:36 PM 5Fr FL 4 catheter inserted over the wire DN twilson :36 PM Time: 13:21 Patient comfortable and pain free: Yes twilson :36 PM Time: 13:21LOC: 4 = Oriented but drowsy twilson :36 PM Wire removed, intact. twilson 01:37 PM Pressure channel 3 zeroed. 01:37 PM Recorded Pressure: LV, QG=493, Condition=Condition 1 (Left Ventricle) LV 143/-6/8 01:37 PM Catheter selectively placed in left ventricle twilson 01:37 PM Bolus angiogram of left Ventricle complete: 10 ml/sec for a total of 30 mls twilson 01:38 PM Recorded Pressure: LV, Ao, JL=635, Condition=Condition 1 (Left Ventricle) LV 144/-5/7, (Aorta) Ao 152/91/117 01:38 PM Recorded Pressure: Ao, NV=945, Condition=Condition 1 (Aorta) Ao 127/92/109 01:38 PM LCA angiography performed in multiple views. twilson 01:39 PM Recorded Pressure: Ao, XI=408, Condition=Condition 1 (Aorta) Ao 125/90/106 01:40 PM Wire reinserted and catheter removed. twilson 01:40 PM 5Fr FR 4 catheter inserted over the wire [facility] twilson 01:40 PM Wire removed, intact. twilson 01:41 PM Recorded Pressure: Ao, HR=99, Condition=Condition 1 (Aorta) Ao 114/90/102 01:41 PM HR=99 bpm, YLKQ=265/78 mmhg, SpO2=98.0 %, Resp=19 B/min 01:41 PM RCA angiography performed in multiple views. twilson 01:41 PM Wire reinserted and catheter and wire removed. twilson 01:42 PM Bolus angiogram of right Femoral complete: 2 ml/sec for a total of 4 mls twilson 01:42 PM Procedure completed at 13:42 twilson 01:43 PM Sign out completed: Radiation Dose 169.37 mGy Fluoro Time: 0.9 Isovue 370 - 200ml contrast 52 ml given by Seng Betancur MD, [facility]. Complications: NoneCardiac Rehab Consult needed: NoConfirmed administered medications: Yes twilson 01:43 PM Isovue 370 - 500ml,1 Bottle(s) used. twilson 01:43 PM Arterial sheath pulled, Mynx closure device used and was Successful S/N. twilson 01:46 PM Coronary Dominance: right twilson 01:46 PM ZR=175 bpm, QQKD=293/93 mmhg, SpO2=97.0 %, Resp=14 B/min 01:47 PM Post Blood Pressure 132/93 twilson 01:47 PM 13:47 Post Pulses Bilateral DP & PT 2+ twilson 01:48 PM Information taught Cardiac Cath and Mynx twilson 01:48 PM Education needs Procedure, Plan of Care, and Responsibilities of Patient in Care twilson 01:48 PM Learning barriers :None twilson 01:48 PM Education Methods Verbal twilson 01:48 PM Education evaluation Able to repeat information twilson 01:49 PM Site status No bleeding/hematoma - Rt Groin as reported by Kaci Veloz RT at 13:48 twilson 01:49 PM Opsite applied twilson 01:51 PM HR=94 bpm, GUQQ=214/93 mmhg, SpO2=96.0 %, Resp=30 B/min 01:51 PM Manual pressure applied for 5 minutes by Kaci Veloz. twilson 01:54 PM Vitals capture stopped. 01:56 PM Report given to Sushma MCGUIRE Pt taken to E Room #25. 13:56 twilson 01:57 PM Family placed in consult room. twilson 01:57 PM Delay to floor No twilson 01:57 PM Patient out of room: 13:57 twilson Complications Complication None Hemodynamics Pressures Site Systolic/A Wave Diastolic/V Wave Mean LV 143 -6 8 LV 144 -5 7 AO 152 91 117 AO 127 92 109 AO 125 90 106 AO 114 90 102 Post Procedure Information Blood Pressure: 132/93 mmHg Post procedural instructions were given Closure Device Time Device Success/Fail 04/09/2017 1:43:00 PM MynxGrip Successful Site Checks Time Location Status Staff Sheath In? Note 01:48 PM Rt Groin No bleeding/hematoma Kaci Veloz RT Pulses Time Site Pre-Procedure Post-Procedure Note 04/09/2017 1:08:00 PM Bilateral DP & PT 2+ 1:47:00 PM Bilateral DP & PT 2+ Updated by Rain Acosta, RT (R) on 04/09/2017 1:57:52 PM electronically signed on 04/09/2017 1:58:39 PM with status of Final
--- NOTE | 2017-04-09 14:03 | Event Note ---
Date of Encounter: 04/09/17 Time of Encounter: 14:02 - Cardiology Event Note LHC completed, only luminal irregularities noted, no obstructive CAD or intervention required. Recommend daily 81mg ASA. Cardiology signing off. Reconsult PRN.
--- NOTE | 2017-04-09 16:04 | Electrocardiograph Report ---
[address] [address] Test Date: 2017-04-08 Pat Name: Sarah Amborse Department: 105 Room: 2NE25 Gender: F Cashier Credit: : 1970 Requested By: Ferny Thompson Order Number: [id number] Reading MD: Seng Betancur MD Measurements Intervals [place] Rate: 103 P: 25 MI: 125 QRS: 32 QRSD: 78 T: 3 QT: 358 QTc: 417 Interpretive Statements SINUS TACHYCARDIA BASELINE ARTIFACT Electronically Signed On 04-09-2017 16:02:44 EDT by Seng Betancur MD
--- NOTE | 2017-04-09 16:09 | Discharge Summary ---
Date of Encounter: 04/09/17 Time of Encounter: 16:06 - Discharge Diagnosis (1) Hyperlipidemia Priority: Secondary Status: Acute Qualifiers: Hyperlipidemia type: unspecified Qualified Code(s): E78.5 - Hyperlipidemia , unspecified (2) Hypertension Priority: Secondary Status: Acute Qualifiers: Hypertension type: essential hypertension Qualified Code(s): I10 - Essential (primary) hypertension (3) Type 2 diabetes mellitus Priority: Secondary Status: Acute Qualifiers: Diabetes mellitus complication status: without complication Diabetes mellitus jail insulin use: without truck terminal manager use Qualified Code(s): E11.9 - Type 2 diabetes mellitus without complications (4) Hypokalemia Priority: Secondary Status: Acute (5) Hypothyroidism Priority: Secondary Status: Acute Qualifiers: Hypothyroidism type: acquired Qualified Code(s): E03.9 - Hypothyroidism, unspecified (6) Unstable angina Priority: Primary Status: Acute - Discharge Medications Prescriptions: Levothyroxine [Synthroid] 175 mcg PO 0630 #30 tablet Home Medications: metFORMIN [Glucophage] 500 mg PO DAILY 12/03/15 [History] Aspirin [Lo-Dose Aspirin EC] 81 mg PO DAILY 02/01/16 [History] Lovastatin [Mevacor] 20 mg PO HS 02/01/16 [History] Calcium Citrate 500 mg PO BID 04/08/17 [History] Cetirizine HCl [Zyrtec] 10 mg PO DAILY 04/08/17 [History] Cyanocobalamin (Vitamin B-12) [Vitamin B-12] 2,000 mcg PO DAILY 04/08/17 [ History] Ergocalciferol (VITAMIN D2) [Vitamin D2] 50,000 unit PO QWEEK 04/08/17 [History] Fluticasone Propionate Nasal [Flonase] 50 mcg NS DAILY PRN 04/08/17 [History] Latanoprost [Xalatan] 1 drop OP HS 04/08/17 [History] Megestrol Acetate 20 mg PO BID 04/08/17 [History] Metoprolol [Lopressor] 12.5 mg PO BID 04/08/17 [History] Levothyroxine [Synthroid] 175 mcg PO 0630 #30 tablet 04/09/17 [Rx] Allergies/Adverse Reactions: 3 Allergy/AdvReac Type Severity Reaction Status Date / Time Penicillins [PCN] Allergy Rash Verified 07/05/16 22:43 Sulfa (Sulfonamide Allergy Rash Verified 07/05/16 22:43 Antibiotics) Procedures/tests Complete & Pending: Procedures Performed prior 72 hours Category Date Time Status CL Cardiac Catheterization [CL] Routine Neck Band Setter 04/09/17 10:06 Ordered EV echocardiogram Routine Y 04/09/17 19:09 Completed Date of admission: 04/08/17 19:04 Primary care physician: Unique Houser CNP - Patient Status Disposition: Home, Self-Care Condition: Good Functional capacity at discharge: independent ambulation Overall status at discharge: patient is progressing back to baseline - Discharge Instructions Follow Up With: Unique Houser CNP [Primary Care Provider] - Additional Instructions: Follow-up with PCP in one week. Follow-up with technical business systems analyst in 2-[address] for one week. He may return to work with no restrictions on 04/17/2017. - Diet and Activity Activity: increase activity as tolerated Diet: low fat, low cholesterol, low salt diet Hospital course: Ms. Ambrose is a 46 year old female with past medical history of hypothyroidism, hypertension, type 2 diabetes and hypercholesterolemia who presented to the hospital for chest pain. She was diagnosed with unstable angina. She was admitted to the medical service and started on heparin drip and nitroglycerin drip. She had serial troponins which remain negative at 0.00. Her chest pain has resolved. She was evaluated by cardiology. She had a cardiac catheterization which showed "only luminal irregularities noted, no obstructive CAD or intervention required". She is chest pain free. Echocardiogram was done and showed LVEF of 60-65%, normal LV function. No abnormalities. Her TSH was 82. Free T4 was low. She reports weight gain of 15 pounds over the last 20 months. She reports compliance with her Thyroid medication. I will increase her levothyroxine to 175 g daily and refer her to endocrinology. She will be discharged home and instructed to follow-up with her PCP in one week. - Time Spent with Patient Total time spent providing and/or coordinating discharge services: Less than 30 minutes - Constitutional Vitals: Temp Pulse Resp BP Pulse Ox 98.1 F 93 14 147/100 96 04/09/17 15:23 04/09/17 15:45 04/09/17 15:45 04/09/17 15:45 04/09/17 15:45 General appearance: Present: A&O X 3 - Respiratory Respiratory exam: Present: CTAB. Absent: accessory muscle use, rales, rhonchi, wheezes - Cardiovascular Cardiovascular exam: Present: RRR, +S1, +S2. Absent: diastolic murmur, gallop, rubs, systolic murmur - GI/Abdominal GI/Abdominal exam: Present: normal bowel sounds, soft, no peritoneal signs. Absent: distended, tenderness
[2017-04-09 16:53] VITALS: BP 138/94
[2017-04-09] MEDS ORDERED: *HR* Heparin 5,000 UNIT/ML VIAL SQ SCH (18:00)
== END 2017-04-09 18:15 | disposition home or self-care (01) | DRG 191 ==
LOC: EMEROO 15:34 → 2NENU 15:34 → SUATTDRO 19:04
PROVIDERS: ADMIT Nurse Practitioner Family; ATTEND Internal Medicine